=== PATIENT | female | born 1995 | race African-American/Black ===

== ENCOUNTER 2018-05-13 12:23 | Observation (INO) | payer MEDICAID ==
[~2018-05-13] VITALS: Ht 157.5 cm; Wt 67.1 kg
[2018-05-13] MEDS ORDERED: FERR325T6 PO (13:11)
[2018-05-13] MEDS ORDERED: DOCU250C14 MT (13:11)
[2018-05-13] MEDS ORDERED: PREN-55 PO (13:11)
[2018-05-13] MEDS ORDERED: SODIUM CHLORIDE 0.9% 1,000 ML IV NR (22:00)
[2018-05-13] MEDS ORDERED: ONDANSETRON HCL 4MG/2ML INJ IV NR (22:30)
[2018-05-13 22:45] LABS: CLARITY URINE CLOUDY (CLEAR); COLOR URINE YELLOW (YELLOW); KETONES URINE 1+ (NEGATIVE); LEUKOCYTE ESTERASE URINE TRACE (NEGATIVE); NITRITE URINE NEGATIVE (NEGATIVE); OCCULT BLOOD URINE 1+ (NEGATIVE); PH URINE 7.5 (4.5-8.0); PROTEIN URINE NEGATIVE (NEGATIVE); SPECIFIC GRAVITY URINE 1.014 (1.005-1.030); UROBILINOGEN URINE 0.2 E.U./dL (0.2-1.0)
[2018-05-13] MEDS ORDERED: ACETAMINOPHEN 500MG TABLET PO NR (23:00)
[2018-05-13] MEDS ORDERED: CEFAZOLIN 2,000 MG in DEXT 5% WATER 100 ML IV NR (23:30)
== END 2018-05-14 00:50 | disposition home or self-care (01) ==
LOC: 8 EST LDRP 12:23
PROVIDERS: ADMIT Specialist; ATTEND Specialist
DX: O26.893 Other specified pregnancy related conditions, third trimester (principal); R10.9 Unspecified abdominal pain; Z3A.28 28 weeks gestation of pregnancy
CPT/HCPCS: 76815; 81003; 96365; 96375; 99281; G0378; J0690; J2405; J7060

== ENCOUNTER 2018-05-13 21:33 | Observation (INO) | payer MEDICAID ==
[~2018-05-13 21:33] MED LIST: DOCU250C14 MT; FERR325T6 PO; PREN-55 PO
== END 2018-05-14 06:06 | disposition home or self-care (01) ==
LOC: 8EST 21:33
PROVIDERS: ADMIT Specialist; ATTEND Specialist
DX: O26.893 Other specified pregnancy related conditions, third trimester (principal); R10.32 Left lower quadrant pain; Z3A.38 38 weeks gestation of pregnancy
CPT/HCPCS: 96360; 96361; 96365; 99281; G0378

== ENCOUNTER 2018-05-14 16:17 | Inpatient (IN) | payer MEDICAID ==
[~2018-05-14] VITALS: Ht 157.5 cm; Wt 66.7 kg
[2018-05-14] MEDS ORDERED: LACTATED RINGERS 1,000 ML IV SCH ×2 (21:45→22:22)
[2018-05-14] MEDS ORDERED: CARBOPROST TROMETHAMINE 250 MCG/ML AMPUL IM PRN (22:30)
[2018-05-14] MEDS ORDERED: BUTORPHANOL TARTRATE 2 MG/ML VIAL IV PRN (22:30)
[2018-05-14] MEDS ORDERED: METHYLERGONOVINE MALEATE 0.2 MG/ML IM PRN (22:30)
[2018-05-14] MEDS ORDERED: LIDOCAINE HCL 1% 20ML VIAL (Pyxis) INJ INFIL SCH (22:30)
[2018-05-14] MEDS ORDERED: NALOXONE HCL 0.4 MG/ML 1ML VIAL IM PRN (22:30)
[2018-05-14] MEDS ORDERED: DEXT 5%/LR + PITOCIN 20UNITS/L 1,000 ML IV SCH (23:00)
[2018-05-14 23:01] LABS: BASOPHILS % 0.1 % (0.0-2.0); HEMATOCRIT. 36.2 % (36.0-48.0); HEMOGLOBIN. 12.4 g/dL (12.0-16.0); MEAN CORPUSCULAR HEMOGLOBIN 32.6 pg (28.0-32.0); MEAN CORPUSCULAR VOLUME 94.8 fL (81.0-99.0); MEAN PLATELET VOLUME 8.8 fl (7.4-10.4); MONOCYTES % 4.9 % (2.0-8.0); PLATELET 227 x1000/uL (130-400); RED BLOOD CELL COUNT 3.82 mill/uL (4.2-5.4); RED CELL DISTRIBUTION WIDTH 13.8 % (11.6-14.6)
[2018-05-14 23:05] LABS: PARTIAL THROMBOPLASTIN TIME 30.7 sec (23.4-31.0); PROTHROMBIN TIME 10.2 sec (9.1-11.1)
[2018-05-14] MEDS ORDERED: ROPIVACAINE HCL/PF EPIDURAL 200 ML EPI SCH (23:45)
[2018-05-14 23:56] LABS: HEPATITIS B SURFACE ANTIGEN NEGATIVE
[2018-05-15 00:25] LABS: CLARITY URINE CLEAR (CLEAR); COLOR URINE YELLOW (YELLOW); KETONES URINE 4+ (NEGATIVE); LEUKOCYTE ESTERASE URINE NEGATIVE (NEGATIVE); NITRITE URINE NEGATIVE (NEGATIVE); OCCULT BLOOD URINE NEGATIVE (NEGATIVE); PH URINE 5.5 (4.5-8.0); PROTEIN URINE NEGATIVE (NEGATIVE); UROBILINOGEN URINE 0.2 E.U./dL (0.2-1.0)
[2018-05-15 00:55] LABS: METHADONE URINE SCREEN NEGATIVE (NEGATIVE)
[2018-05-15 00:56] LABS: *AMPHETAMINES SCREEN URINE NEGATIVE (NEGATIVE); *BARBITURATES SCREEN URINE NEGATIVE (NEGATIVE); *BENZODIAZEPINES SCREEN URINE NEGATIVE (NEGATIVE); OPIATES URINE SCREEN NEGATIVE (NEGATIVE); PHENCYCLIDINE URINE SCREEN NEGATIVE (NEGATIVE)
[2018-05-15 00:57] LABS: *COCAINE SCREEN URINE NEGATIVE (NEGATIVE)
[2018-05-15 01:21] LABS: CANNABINOID URINE SCREEN PRESUMTIVE POSITIVE (NEGATIVE)
[2018-05-15] MEDS ORDERED: DEXT 5%/LR + PITOCIN 20UNITS/L 1,000 ML IV SCH (07:44)
[2018-05-15] MEDS ORDERED: BISACODYL 10MG SUPP PR PRN (07:45)
[2018-05-15] MEDS ORDERED: GLYCERIN/WITCH HAZEL LEAF MEDICATED PAD TOP PRN (07:45)
[2018-05-15] MEDS ORDERED: HEMORRHOIDAL SUPP PR PRN (07:45)
[2018-05-15] MEDS ORDERED: BENZOCAINE/LANOLIN/ALOE VERA SPRAY TOP PRN (07:45)
[2018-05-15] MEDS ORDERED: OXYCODONE HCL/ACETAMINOPHEN 5/325MG TABLET PO PRN (07:45)
[2018-05-15] MEDS ORDERED: ONDANSETRON HCL 4MG/2ML INJ IV NR (08:30)
[2018-05-15 10:30] VITALS: BP 123/66
[2018-05-15 10:57] VITALS: BP 123/75
[2018-05-15] MEDS: SIMETHICONE 80MG TABLET CHEW PO SCH ×2 (13:00→22:13)
[2018-05-15 21:50] VITALS: BP 108/56
[2018-05-15] MEDS: OXYCODONE HCL/ACETAMINOPHEN 5/325MG TABLET PO PRN (22:13)
[2018-05-15] MEDS: DOCUSATE SODIUM 100MG CAPSULE PO SCH (22:14)
[2018-05-16 04:00] VITALS: BP 108/77
[2018-05-16] MEDS: OXYCODONE HCL/ACETAMINOPHEN 5/325MG TABLET PO PRN (04:36)
[2018-05-16 06:00] VITALS: BP 100/69
[2018-05-16 06:15] LABS: BASOPHILS % 0.4 % (0.0-2.0); EOSINOPHILS % 0.9 % (0.0-5.0); HEMATOCRIT. 32.8 % (36.0-48.0); HEMOGLOBIN. 11.4 g/dL (12.0-16.0); LYMPHOCYTES % 27.8 % (20.0-50.0); MEAN CORPUSCULAR HEMOGLOBIN 32.9 pg (28.0-32.0); MEAN CORPUSCULAR VOLUME 94.9 fL (81.0-99.0); MEAN PLATELET VOLUME 8.5 fl (7.4-10.4); MONOCYTES % 11.9 % (2.0-8.0); PLATELET 191 x1000/uL (130-400); RED BLOOD CELL COUNT 3.45 mill/uL (4.2-5.4); RED CELL DISTRIBUTION WIDTH 13.9 % (11.6-14.6)
[2018-05-16 09:00] VITALS: BP 127/82
[2018-05-16] MEDS: SIMETHICONE 80MG TABLET CHEW PO SCH ×3 (09:08→17:37)
[2018-05-16] MEDS: FERROUS SULFATE 325MG TABLET PO SCH ×3 (09:10→17:37)
[2018-05-16] MEDS: PRENATAL VIT/FE FUMARATE/FA TABLET PO SCH (09:10)
[2018-05-16] MEDS: IBUPROFEN 400MG TABLET PO PRN ×2 (09:43→17:37)
[2018-05-16 17:00] VITALS: BP 113/84
[2018-05-16 20:00] VITALS: BP 106/56
[2018-05-16] MEDS: DOCUSATE SODIUM 100MG CAPSULE PO SCH (21:12)
[2018-05-17 04:00] VITALS: BP 105/65
[2018-05-17 09:00] VITALS: BP 115/75
[2018-05-17] MEDS: FERROUS SULFATE 325MG TABLET PO SCH (09:00)
[2018-05-17] MEDS: PRENATAL VIT/FE FUMARATE/FA TABLET PO SCH (09:00)
[2018-05-17] MEDS: SIMETHICONE 80MG TABLET CHEW PO SCH (09:00)
[2018-05-17] MEDS: IBUPROFEN 400MG TABLET PO PRN (12:41)
[2018-05-20 08:14] LABS: CANNABINOID CONFIRMATION URINE Positive (.)
== END 2018-05-17 12:45 | disposition home or self-care (01) | DRG 560 ==
LOC: 8 EST LDRP 16:17 → OBSVTOIN 16:17 → 8EST 05-15 09:40
PROVIDERS: ADMIT Obstetrics & Gynecology; ATTEND Obstetrics & Gynecology
PROC: 10E0XZZ Delivery of Products of Conception, External Approach (ICD-10-PCS; principal; 2018-05-15)
DX: O80 Encounter for full-term uncomplicated delivery (principal); Z37.0 Single live birth; Z3A.39 39 weeks gestation of pregnancy
CPT/HCPCS: 36415; 76815; 76818; 80305; 80349; 86592; 86703; 86762; 86850; 86900; 87340; 99281; J0595; J2590; J2795